=== PATIENT | female | born 1960 | race Caucasian/White ===

== ENCOUNTER 2017-08-05 08:00 | Inpatient (IN) | payer OTHER ==
[~2017-08-05] VITALS: Ht 166.4 cm; Wt 109.1 kg
--- NOTE | 2017-09-16 11:55 | MH ---
cc: Pankaj PEÑA M.D. DATE OF ADMISSION: 09/23/2017 ADMITTING DIAGNOSIS Mechanically loose left total knee arthroplasty, now being admitted for revision of left total knee arthroplasty. HISTORY OF PRESENT ILLNESS This pleasant 56-year-old female is being admitted today for revision of a left total knee arthroplasty that was done over a year ago and has been hurting since. Recent x-rays and bone scan were done. The x-rays reveal probable loosening. PAST MEDICAL HISTORY 1. History of breast cancer and mastectomy. 2. Anemia. 3. Arthritis. 4. Depression. MEDICATIONS Current medications include: 1. Tamoxifen. 2. Ativan. 3. Lexapro. 4. Risperdal. PAST SURGICAL HISTORY Other surgeries include: 1. Three knee surgeries, one replacement on the left. 2. Two C-sections. 3. Hysterectomy. 4. Mastectomy. 5. Thyroidectomy. SOCIAL HISTORY She does not smoke or drink. REVIEW OF SYSTEMS Noncontributory. FAMILY HISTORY Noncontributory. ALLERGIES She has no known allergies. PHYSICAL EXAMINATION GENERAL: We find a 56-year-old female, well-developed, well-nourished, oriented x3, complaining of pain in her left knee and instability of the left knee. VITAL SIGNS: Blood pressure 118/80, pulse 79 and regular, respirations 16, temperature 98.2. Pulse oximetry 98% on room air. HEENT: Eyes PERRLA, EOMI. Ears, nose and mouth clear. NECK: Supple. LUNGS: Clear. HEART: Regular rate. ABDOMEN: Soft. Positive bowel sounds. Nontender. EXTREMITIES: The left knee reveals 2+ varus-valgus instability, good range of motion. Neurovascularly intact to her toes. Antalgic gait. IMPRESSION Impression at this time is mechanically loose left total knee arthroplasty. PLAN The plan is admission for revision left total knee arthroplasty today. The patient was given a prescription for postoperative pain and anticoagulation control in the office. She plans on going home after her surgical stay in the hospital. She understands to use Hibiclens scrub and Bactroban preoperatively. JMD ALYSA Partida/FÉLIX /11:42 AM /11:51 AM
[2017-09-20] MEDS ORDERED: RISP1 PO (09:11)
[2017-09-20] MEDS ORDERED: TAMO20TA6 PO (09:11)
[2017-09-20] MEDS ORDERED: VITA100021 SL (09:11)
[2017-09-20] MEDS ORDERED: LEXA20TA PO (09:11)
[2017-09-20] MEDS ORDERED: MULT-65 PO (09:11)
[2017-09-20] MEDS ORDERED: LORA-392 PO (09:11)
[2017-09-23] MEDS ORDERED: VANCOMYCIN 1000 MG/NS 250 ML (for <70 kg) IV SCH ×2 (06:00)
[2017-09-23] MEDS ORDERED: LACTATED RINGER'S 1000 ML IV PRN (06:00)
[2017-09-23] MEDS ORDERED: INSULIN HUMAN REGULAR 1,000 UNITS/10 ML VIAL SQ PRN (06:00)
[2017-09-23] MEDS ORDERED: METOPROLOL TARTRATE 25 MG TAB PO PRN (06:00)
[2017-09-23] MEDS ORDERED: CHLORHEXIDINE GLUCONATE 4% SOLN 120 ML BTL TOPICAL SCH (06:00)
[2017-09-23] MEDS ORDERED: ceFAZolin 2 GM PREMIX 50 ML IV SCH (06:00)
[2017-09-23] MEDS ORDERED: SODIUM CHLORID 0.9% 500 ML IV PRN (06:00)
[2017-09-23] MEDS ORDERED: CHLORHEXIDINE GLUCONATE 2 % 1 PACK (2 CLOTHS) TOPICAL PRN (06:00)
[2017-09-23] MEDS ORDERED: POVIDONE IODINE 5% (ANTISEPSIS KIT) 4 APPLICATIONS EACH NARE PRN (06:00)
[2017-09-23] MEDS ORDERED: ceFAZolin INJ 1,000 MG VIAL ONE ×2 (06:11→11:04)
[2017-09-23] MEDS ORDERED: TOBRAMYCIN SULFATE 1200 MG VIAL ONE ×2 (06:11→11:17)
[2017-09-23] MEDS ORDERED: ACETAMINOPHEN 1000 MG/100 ML 100 ML IV ONE (06:20)
[2017-09-23] MEDS ORDERED: BUPIVACAINE HCL PF 0.5% 30 ML VIAL ONE (06:20)
[2017-09-23] MEDS ORDERED: FAMOTIDINE 20 MG/2 ML VIAL ONE (06:21)
[2017-09-23] MEDS ORDERED: PROPOFOL 500 MG/50 ML INJ 50 ML ONE ×3 (06:22→06:23)
[2017-09-23 06:54] LABS: AUTOMATED NEUTROPHIL # 2.3 TH/MM3 (1.8-7.7); BASOPHIL % 0.4 % (0.0-2.0); EOSINOPHIL % 0.6 % (0.0-4.0); HEMATOCRIT 35.8 % (35.0-46.0); HEMO FLAGS DIFF FINAL; LYMPH % 28.2 % (9.0-44.0); LYMPHOCYTE # 1.1 TH/MM3 (1.0-4.8); MEAN CELL VOLUME 88.9 FL (80.0-100.0); MEAN CORPUSCULAR HEMOGLOBIN 30.2 PG (27.0-34.0); MONO % 9.3 % (0.0-8.0); NEUT % 61.5 % (16.0-70.0); PLATELET COUNT 165 TH/MM3 (150-450); RED BLOOD COUNT 4.02 MIL/MM3 (4.00-5.30); RED CELL DISTRIBUTION WIDTH 13.2 % (11.6-17.2); WHITE BLOOD COUNT 3.8 TH/MM3 (4.0-11.0)
[2017-09-23] MEDS ORDERED: BUPIVACAINE LIPOSOME PF 1.3% 20 ML VIAL ONE (06:54)
[2017-09-23] MEDS ORDERED: TRANEXAMIC ACID IV SCH ×3 (07:00→11:00)
[2017-09-23] MEDS ORDERED: SODIUM CHLORIDE 0.9% IV SCH ×3 (07:00→11:00)
[2017-09-23] MEDS ORDERED: EXPAREL PERI-ARTICULAR INJECTION (TOTAL VOL. 120 ML) P-ARTICULR SCH ×2 (07:00)
--- NOTE | 2017-09-23 07:23 | HHI.FF ---
Face to Face Verification Diagnosis: (1) Status post revision of total replacement of left knee Physical Therapy Gait training Knee: Total knee, Protocol: Left, Full weight bearing Canvas Knee Splint: When in bed & 2 pillows btw thighs Nursing RN: 3 days/week x 2 weeks Nursing: Dressing changes Dressing Changes: Daily dressing change, 4x4s, Gauze, Paper tape I have seen patient Ailyn Lorenz on 09/23/17. My clinical findings support the need for the requested home health care services because: Limited ability to care for self High risk of falls I certify that my clinical findings support that this patient is homebound because: Unsteady gait/balance Pankaj Polk MD Sep 23, 2017 07:23
[2017-09-23] MEDS ORDERED: WALKER WHEELS/F1 MIS (07:25)
[2017-09-23] MEDS ORDERED: ADJUSTABLE COMM1 MIS (07:25)
[2017-09-23] MEDS ORDERED: CPMMACHINE (07:25)
[2017-09-23] MEDS ORDERED: ACETAMINOPHEN 325 MG TAB PO PRN (07:30)
[2017-09-23] MEDS ORDERED: MORPHINE SULFATE 4 MG/ML INJ IV PUSH PRN (07:30)
[2017-09-23] MEDS ORDERED: SODIUM CHLORIDE 0.9% FLUSH 5 ML FLUSH IVF PRN (07:30)
[2017-09-23] MEDS ORDERED: TEMAZEPAM 15 MG CAP PO PRN (07:30)
[2017-09-23] MEDS ORDERED: diphenhydrAMINE HCL 50 MG/ML VIAL IV PUSH PRN (07:30)
[2017-09-23] MEDS ORDERED: NALOXONE HCL 0.4 MG/ML AMP IV PUSH PRN (07:30)
[2017-09-23] MEDS ORDERED: MULTIVITAMIN TAB PO SCH (09:00)
[2017-09-23] MEDS: SODIUM CHLORIDE 0.9% FLUSH 5 ML FLUSH IVF SCH ×2 (09:00→20:50)
[2017-09-23] MEDS: TAMOXIFEN CITRATE 10 MG TAB PO SCH (09:00)
[2017-09-23] MEDS: LORazepam 0.5 MG TAB PO SCH ×3 (09:00→18:00)
[2017-09-23] MEDS: ESCITALOPRAM OXALATE 20 MG TAB PO SCH (09:00)
[2017-09-23] MEDS: CYANOCOBALAMIN 1,000 MCG TAB PO SCH (09:00)
[2017-09-23] MEDS: risperiDONE 1 MG TAB PO SCH (09:00)
[2017-09-23] MEDS ORDERED: Post-op Orders (for Pharmacy) MISC XX ONE (12:00)
[2017-09-23] MEDS ORDERED: ceFAZolin INJ 1,000 MG VIAL IV ONE (12:01)
[2017-09-23] MEDS ORDERED: DO NOT ADM ANY ANTICOAGULANT DRUGS PRN (13:18)
--- NOTE | 2017-09-23 13:35 | RADRPT ---
EXAM DATE/TIME: 09/23/2017 12:35 [facility] COMPARISON: KNEE LEFT LTD (1 OR 2VWS), December 28, 2015, 14:21. INDICATIONS : Post op, left knee replacement. MEDICAL HISTORY : None. SURGICAL HISTORY : None. ENCOUNTER: Initial ACUITY: 1 day PAIN SCORE: Non-responsive. LOCATION: Left knee FINDINGS: The patient is post left knee revision arthroplasty. There is a long stem femoral and longstem tibial component. Orthopedic hardware appears in excellent position. Alignment is good. CONCLUSION: 1. Good alignment of the patient's revision arthroplasty. Emmanuel Payne MD on September 23, 2017 at 13:32 Board Certified Radiologist. This report was verified electronically.
[2017-09-23] MEDS ORDERED: LACTATED RINGER'S 1000 ML INJ 500 ML IV ONE (13:45)
[2017-09-23] MEDS ORDERED: *morphine SULFATE 8 MG/ML PERIprocedure ONLY ONE ×2 (13:50→14:07)
[2017-09-23] MEDS: LACTATED RINGER'S 1000 ML INJ 1,000 ML IV SCH ×2 (14:03→19:47)
[2017-09-23 14:10] LABS: HEMATOCRIT 31.5 % (35.0-46.0); REVIEW FLAG FINAL
[2017-09-23] MEDS ORDERED: *ONDANSETRON 4 MG VIAL PERIprocedural Use ONLY ONE (14:45)
[2017-09-23 14:55] VITALS: BP 121/69; PULSE 100; RESP 18; TEMP 96.6; O2SAT 95
--- NOTE | 2017-09-23 15:15 | MP ---
cc: Pankaj PEÑA M.D. 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 SURGERY PERFORMED Revision left total knee arthroplasty using the [place] total knee system by [employer]. SURGEON Dr. Peña. SENIOR GRAPHIC DESIGNER URIEL Gomez ANESTHESIA General intubation and adductor canal block. PROCEDURE The patient was brought to the operating room and placed on the operating table in the supine position. After successful induction of general anesthesia the patient's left knee, thigh and leg were prepped and draped in the usual manner. Tourniquet was inflated in the left upper thigh and set for 300 mmHg pressure after exsanguination of the left lower extremity. An anterior incision was then made 9 inches in length, centering over the patella, carried down through subcutaneous tissue through a medial parapatellar approach through the old incision line down to the joint surface. The joint surface was entered and clear serous fluid sent to the lab for STAT Gram stain culture. Gram stain revealing few white cells, no bacteria seen. The incision was carried down to the knee joint. The knee joint was then flexed and the patella reflected laterally. The patella found to have been damaged and this was easily removed for later patella revision as well. The femoral component was firmly well-fixed but the tibial component was extremely loose and once the femoral component was removed using a thin osteotome and the femur was disimpacted, the tibia was removed by hand with no loosening or disimpaction ___ the cement was still intact. No cement was found bonded to the tibial component at all. The knee was flexed and the remains of the tibia cement was removed using osteotome. First the tibia was approached by reaming the canal to a size 12.5 for insertion of a 12 x 130 mm tibial muna attached to a size 4 tibial plate after the tibial surface was smoothed using a saw using the appropriate jig to allow slight posterior tilt. After the tibia was reamed the thin cuts were made. The femur was then approached and cleaned up by first finding the canal and reaming the canal to a size 12.5 for insertion of a size 12 x 130 femoral stem and a size E left femur was used and the anterior and posterior cuts were made. Two 5 mm posterior augments were utilized with the appropriate screws on the actual component as well. The distal cut was cleaned up as well and the chamfer cuts. The trials were inserted and found to track best with the aforementioned sizes and a size 11 insert. All trials were then removed and the wound irrigated copiously with antibiotic solution, the tourniquet being deflated at 111 minutes and left deflated for over 1 hour before it was raised again for cementing and at that point the total tourniquet time was 28 minutes. The actual component was then cemented in place, first the tibia with two batches of antibiotic impregnated cement. After that cement hardened the femur and the patella were cemented into place using two more batches of Fanvibe[employer] antibiotic impregnated cement. After the tourniquet was finally deflated meticulous hemostasis was achieved and 120 ccs of Exparel was used around the knee joint for extra pain control. The size 11 insert was then impacted into place and held steady with the locking screw. The first screw did not fit well and the first tibial insert had to be exchanged for a brand new one again and the second one was easily screwed into place and tightened to prevent it from loosening. Full range of motion of the knee joint was then appreciated with no instability. The wounds were irrigated copiously with antibiotic solution and meticulous hemostasis was achieved. The deep fascia was approximated with running #2 Quill, subcutaneous tissue was approximated with interrupted running 2-0 and 3-0 Monocryl suture, Steri-Strips, sterile dressing and knee immobilizer. No drain was utilized. Estimated blood loss throughout the case was 300 ccs. An extra 2 hours of time was needed because of problems with breakage of screws and extra dissection technique to allow the second insert to be seated properly and CaitlinURIEL Vergara was present during the entire procedure to include patient positioning and the procedure. The medical necessity of the nurse practitioner customer relations assistant was indicated in this case due to the surgical complexity of the case itself. During the surgical case the surgical elastic knitter was working the back table while my surgical services director URIEL was directly assisting me. J. MD ALYSA Ruiz/JAME /2:11 PM /2:42 PM
[2017-09-23] MEDS: ONDANSETRON HCL 4 MG/2 ML VIAL IVP PRN ×2 (16:46→20:46)
--- NOTE | 2017-09-23 19:36 | EKG ---
Date Performed: 09/23/2017 Time Performed: 07:13:38 PTAGE: 56 years EKG: Sinus rhythm LEFT BUNDLE BRANCH BLOCK ABNORMAL ECG Since PREVIOUS TRACING , no significant change noted PREVIOUS TRACIN12/12/2015 09.30 DOCTOR: Jessica Hi Interpretating Date/Time 09/23/2017 19:34:57
[2017-09-23 20:00] VITALS: BP 127/73; PULSE 88; RESP 18; TEMP 97.8; O2SAT 94
--- NOTE | 2017-09-23 20:22 | HHI.PR ---
Immediate Post Op Note Procedure Date: Sep 23, 2017 Pre Op Diagnosis: Mechanically loose left total knee arthroplasty Post Op Diagnosis: Mechanically loose left total knee arthroplasty Surgeon: Omar Polk MD Bending Machine Operator(s): Evelia TREVINO Procedure: Revision Left Total Knee Arthroplasty Findings: Mechanically loose left total knee arthroplasty Specimen(s) removed: Cultures of knee joint Estimated blood loss: 300 cc Anesthesia: General Drains: None IVF Urinary Output (mLs): 0 (no woodruff) Tourniquet time (min at mmHg) 120 minutes at 300 mmHg Patient to: PACU Patient Condition: Good Implant/Devices: SEE IMPLANT LOG (if applicable) Date/Time of Procedure: SEE SURGICAL CARE RECORD Evelia Vigil Sep 23, 2017 20:22
--- NOTE | 2017-09-23 20:24 | PD.CONS ---
HPI Service [facility] Consult Requested By Primary Care Physician No Primary Care Physician Diagnoses: History of Present Illness 56-year-old female with a history of depression, anxiety, osteoarthritis who presents for revision of left total knee arthroplasty, which had appeared to loosen on imaging. She is currently postop in bed. She reports some nausea without vomiting after surgery which improved with antiemetics. Denies any chest pain or shortness of breath. Denies any lightheadedness or dizziness. She does report chronic constipation, however denies any severe constipation at this time. She says she felt fine prior to coming in the hospital apart from knee pain. She does report snoring at night, however has never had evaluation for this. She reports chronic pain all over, as well as waking up more tired than she was when she went to sleep. She also reports chronic intermittent numbness and tingling in her fingers bilaterally, sometimes exacerbated by having her elbow on the bed. Denies any issues with this at this current time. Review of Systems performed and negative except for HPI and past medical history. Past Family Social History Allergies: Coded Allergies: adhesive (Unverified Allergy, Severe, Irritation, 09/23/17) plastic tape causes blisters, can use paper taper Past Medical History Depression B12 deficiency Anxiety History of breast cancer status post left mastectomy years ago. Reports cancer free. Chronic constipation. Past Surgical History 3 knee surgeries, with one replacement on the left 2 Hysterectomy Left-sided mastectomy Partial thyroidectomy. Says she does not require Synthroid. Pyloric stenosis surgery as a child. Reported Medications Lexapro 20 mg by mouth daily Risperdal 1 mg by mouth daily Ativan 0.5 mg by mouth 3 times a day Tamoxifen 20 mg by mouth daily Vitamin B12 1000 g daily Multivitamin daily. Family History Father with Parkinson's. Mother with dementia. Social History Nonsmoker. Nondrinker. Denies illicit drugs. Physical Exam Vital Signs Vital Signs Date Time Temp Pulse Resp B/P (MAP) Pulse Ox O2 Delivery O2 Flow Rate FiO2 09/23/17 18:57 Room Air 09/23/17 14:55 96.6 100 18 121/69 (86) 95 09/23/17 14:45 97.7 95 24 118/64 (82) 97 Nasal Cannula 2 09/23/17 14:30 98 12 118/64 (82) 97 Nasal Cannula 2 09/23/17 14:15 90 12 118/65 (82) 97 Nasal Cannula 2 09/23/17 14:00 94 12 113/64 (80) 98 Nasal Cannula 2 09/23/17 13:45 94 14 113/67 (82) 98 Nasal Cannula 2 09/23/17 13:40 84 12 93/57 (69) 96 09/23/17 13:35 85 12 84/52 (63) 97 09/23/17 13:30 82 13 77/47 (57) 97 Nasal Cannula 2 09/23/17 13:25 Nasal Cannula 2 09/23/17 13:19 98.1 117 12 106/64 (78) 100 Simple Mask 6 Physical Exam GENERAL: This is a well-nourished, well-developed patient, in no apparent distress.alert and oriented 3. SKIN: No rashes, ecchymoses or lesions. Cool and dry. HEAD: Atraumatic. Normocephalic. No temporal or scalp tenderness. EYES: Pupils equal round and reactive. Extraocular motions intact. No scleral icterus. No injection or drainage. ENT: Nose without bleeding, purulent drainage or septal hematoma. Throat without erythema, tonsillar hypertrophy or exudate. Uvula midline. Airway patent. NECK: Trachea midline. No JVD or lymphadenopathy. Supple, nontender, no meningeal signs. CARDIOVASCULAR: Regular rate and rhythm without murmurs, gallops, or rubs. RESPIRATORY: Clear to auscultation. Breath sounds equal bilaterally. No wheezes , rales, or rhonchi. GASTROINTESTINAL: Abdomen soft, non-tender, nondistended. No hepato-splenomegaly , or palpable masses. No guarding. MUSCULOSKELETAL: Extremities without clubbing, cyanosis, or edema. No joint tenderness, effusion, or edema noted. No calf tenderness. Negative Homans sign bilaterally. NEUROLOGICAL: Awake and alert. Cranial nerves II through XII intact. strength in bilateral upper extremities 5 out of 5. Peripheral perfusion in bilateral lower extremities intact. Postoperative knee not examined. Laboratory Laboratory Tests Test 09/23/17 06:20 09/23/17 13:58 09/23/17 18:56 White Blood Count 3.8 Red Blood Count 4.02 Hemoglobin 12.2 10.6 Hematocrit 35.8 31.5 Mean Corpuscular Volume 88.9 Mean Corpuscular Hemoglobin 30.2 Mean Corpuscular Hemoglobin Concent 34.0 Red Cell Distribution Width 13.2 Platelet Count 165 Mean Platelet Volume 8.2 Neutrophils (%) (Auto) 61.5 Lymphocytes (%) (Auto) 28.2 Monocytes (%) (Auto) 9.3 Eosinophils (%) (Auto) 0.6 Basophils (%) (Auto) 0.4 Neutrophils # (Auto) 2.3 Lymphocytes # (Auto) 1.1 Monocytes # (Auto) 0.4 Eosinophils # (Auto) 0.0 Basophils # (Auto) 0.0 CBC Comment DIFF FINAL Differential Comment Date/Time Source Procedure Growth Status 09/23/17 08:10 Wound Knee Gram Stain - Final Resulted 09/23/17 08:10 Wound Knee Wound Culture Pending Resulted Result Diagram: 09/23/17 1358 Imaging Last Impressions Knee X-Ray 09/23/17 0717 Signed Impressions: Service Date/Time: Saturday, September 23, 2017 12:35 - CONCLUSION: 1. Good alignment of the patient's revision arthroplasty. Emmanuel Payne MD Assessment and Plan Assessment and Plan //Postoperative day 0 left knee replacement --Postoperative management as per surgical service. -Pain management as per surgical service -Wait return of bowel function. BMP pending. //Postoperative nausea. Antiemetics as needed. //Chronic constipation. Expect to be worse with narcotics. We'll order laxatives. //Depression. Chronic. Patient denies any SI. Continue home medications //Leukopenia. 3.8. Uncertain etiology. Could be lab error. No signs of infection. Continue to monitor. //Postoperative anemia. Hemoglobin 10.6. No signs of bleeding. We'll continue to monitor. //Suspected obstructive sleep apnea. Recommend patient get outpatient evaluation. We'll monitor closely in the hospital. Discussed with nursing. //History of breast cancer status post left mastectomy years ago. Reports cancer free. Continue tamoxifen. //Prophylaxis. As per surgical service. Discussed Condition With patient, nurse. Dipak Krishnan MD Sep 23, 2017 20:24
[2017-09-23 20:38] LABS: BICARBONATE 21.4 MEQ/L (21.0-32.0)
[2017-09-23] MEDS ORDERED: DOCUSATE SODIUM 50 MG/SENNA 8.6 MG TAB PO ONE (20:45)
[2017-09-23] MEDS ORDERED: MAGNESIUM HYDROXIDE SUSP 30 ML CUP PO ONE (20:45)
[2017-09-23] MEDS: ACETAMINOPHEN/HYDROcodone 325 MG/7.5 MG TAB PO PRN (20:46)
[2017-09-23] MEDS ORDERED: APIXABAN 2.5 MG TABLET PO SCH (21:00)
[2017-09-24] VITALS: BP 129/78; PULSE 90; RESP 16; TEMP 97.8; O2SAT 95
[2017-09-24] MEDS: ACETAMINOPHEN/HYDROcodone 325 MG/7.5 MG TAB PO PRN ×5 (00:59→21:44)
[2017-09-24 04:00] VITALS: BP 133/78; PULSE 95; RESP 17; TEMP 98.8; O2SAT 95
[2017-09-24] MEDS: ONDANSETRON HCL 4 MG/2 ML VIAL IVP PRN (07:26)
[2017-09-24 08:00] VITALS: BP 108/67; PULSE 91; RESP 18; TEMP 99.5; O2SAT 94
[2017-09-24] MEDS: LACTATED RINGER'S 1000 ML INJ 1,000 ML IV SCH ×2 (08:17→20:47)
[2017-09-24] MEDS: CYANOCOBALAMIN 1,000 MCG TAB PO SCH (08:34)
[2017-09-24] MEDS: LORazepam 0.5 MG TAB PO SCH ×3 (08:34→16:18)
[2017-09-24] MEDS: risperiDONE 1 MG TAB PO SCH (08:34)
[2017-09-24] MEDS: ESCITALOPRAM OXALATE 20 MG TAB PO SCH (08:34)
[2017-09-24] MEDS: SODIUM CHLORIDE 0.9% FLUSH 5 ML FLUSH IVF SCH ×2 (08:36→21:46)
[2017-09-24] MEDS: TAMOXIFEN CITRATE 10 MG TAB PO SCH (08:39)
[2017-09-24] MEDS: CYCLOBENZAPRINE HCL 10 MG TAB PO PRN ×2 (11:33→21:45)
--- NOTE | 2017-09-24 11:49 | PD.ORT.PN ---
Subjective Subjective Remarks Patient is complaining of pain behind her left knee with spasms. Objective Vitals Vital Signs Date Time Temp Pulse Resp B/P (MAP) Pulse Ox O2 Delivery O2 Flow Rate FiO2 09/24/17 08:00 99.5 91 18 108/67 (81) 94 09/24/17 04:00 98.8 95 17 133/78 (96) 95 09/24/17 00:00 97.8 90 16 129/78 (95) 95 09/23/17 20:00 97.8 88 18 127/73 (91) 94 09/23/17 18:57 Room Air 09/23/17 14:55 96.6 100 18 121/69 (86) 95 09/23/17 14:45 97.7 95 24 118/64 (82) 97 Nasal Cannula 2 09/23/17 14:30 98 12 118/64 (82) 97 Nasal Cannula 2 09/23/17 14:15 90 12 118/65 (82) 97 Nasal Cannula 2 09/23/17 14:00 94 12 113/64 (80) 98 Nasal Cannula 2 09/23/17 13:45 94 14 113/67 (82) 98 Nasal Cannula 2 09/23/17 13:40 84 12 93/57 (69) 96 09/23/17 13:35 85 12 84/52 (63) 97 09/23/17 13:30 82 13 77/47 (57) 97 Nasal Cannula 2 09/23/17 13:25 Nasal Cannula 2 09/23/17 13:19 98.1 117 12 106/64 (78) 100 Simple Mask 6 I/O 09/23/17 09/23/17 09/23/17 09/24/17 09/24/17 09/24/17 07:00 15:00 23:00 07:00 15:00 23:00 Intake Total 2377 ml 100 ml 900 ml Output Total 5500 ml 50 ml Balance -3123 ml 50 ml 900 ml Intake Oral 30 ml IV Total 547 ml 100 ml 900 ml Other 1800 ml Output Urine Total 1200 ml 50 ml Estimated Blood Loss 300 ml Other 4000 ml Result Diagram: 09/23/17 7038 09/23/17 7623 Objective Remarks Dressing is dry and intact. She is neurovascularly intact to her toes and has no calf tenderness. Assessment & Plan Ortho Post Op Day #: 1 Problem List: Assessment and Plan Flexeril for muscle spasms. Continue with physical therapy and out of bed as tolerated. Plan on discharge to home over the next day or 2. Pankaj Polk MD Sep 24, 2017 11:49
[2017-09-24 12:00] VITALS: BP 110/60; PULSE 84; RESP 18; TEMP 98.9; O2SAT 94
[2017-09-24 12:13] LABS: AUTOMATED NEUTROPHIL # 4.3 TH/MM3 (1.8-7.7); BASOPHIL % 0.2 % (0.0-2.0); HEMATOCRIT 26.7 % (35.0-46.0); HEMO FLAGS DIFF FINAL; LYMPH % 14.5 % (9.0-44.0); LYMPHOCYTE # 0.8 TH/MM3 (1.0-4.8); MEAN CELL VOLUME 89.5 FL (80.0-100.0); MEAN CORPUSCULAR HEMOGLOBIN 29.7 PG (27.0-34.0); MEAN CORPUSCULAR HGB CONC 33.1 % (32.0-36.0); MONO % 8.9 % (0.0-8.0); NEUT % 76.4 % (16.0-70.0); PLATELET COUNT 132 TH/MM3 (150-450); RED BLOOD COUNT 2.98 MIL/MM3 (4.00-5.30); RED CELL DISTRIBUTION WIDTH 13.4 % (11.6-17.2); WHITE BLOOD COUNT 5.6 TH/MM3 (4.0-11.0)
[2017-09-24] MEDS: APIXABAN 2.5 MG TABLET PO SCH ×2 (12:24→21:46)
[2017-09-24 12:28] LABS: BICARBONATE 28.9 MEQ/L (21.0-32.0); MAGNESIUM 1.8 MG/DL (1.5-2.5); POTASSIUM 3.9 MEQ/L (3.5-5.1)
--- NOTE | 2017-09-24 13:11 | HHI.PR ---
Subjective Remarks Patient seen and examined Complains of inadequate left knee pain control Positive nausea without any emesis Currently afebrile Objective Vitals Vital Signs Date Time Temp Pulse Resp B/P (MAP) Pulse Ox O2 Delivery O2 Flow Rate FiO2 09/24/17 12:00 98.9 84 18 110/60 (77) 94 09/24/17 08:00 99.5 91 18 108/67 (81) 94 09/24/17 04:00 98.8 95 17 133/78 (96) 95 09/24/17 00:00 97.8 90 16 129/78 (95) 95 09/23/17 20:00 97.8 88 18 127/73 (91) 94 09/23/17 18:57 Room Air 09/23/17 14:55 96.6 100 18 121/69 (86) 95 09/23/17 14:45 97.7 95 24 118/64 (82) 97 Nasal Cannula 2 09/23/17 14:30 98 12 118/64 (82) 97 Nasal Cannula 2 09/23/17 14:15 90 12 118/65 (82) 97 Nasal Cannula 2 09/23/17 14:00 94 12 113/64 (80) 98 Nasal Cannula 2 09/23/17 13:45 94 14 113/67 (82) 98 Nasal Cannula 2 09/23/17 13:40 84 12 93/57 (69) 96 09/23/17 13:35 85 12 84/52 (63) 97 09/23/17 13:30 82 13 77/47 (57) 97 Nasal Cannula 2 09/23/17 13:25 Nasal Cannula 2 09/23/17 13:19 98.1 117 12 106/64 (78) 100 Simple Mask 6 I/O 09/23/17 09/23/17 09/23/17 09/24/17 09/24/17 09/24/17 07:00 15:00 23:00 07:00 15:00 23:00 Intake Total 2377 ml 100 ml 900 ml Output Total 5500 ml 50 ml Balance -3123 ml 50 ml 900 ml Intake Oral 30 ml IV Total 547 ml 100 ml 900 ml Other 1800 ml Output Urine Total 1200 ml 50 ml Estimated Blood Loss 300 ml Other 4000 ml Result Diagram: 09/24/17 1140 09/24/17 1140 Imaging Last Impressions Knee X-Ray 09/23/17 0717 Signed Impressions: Service Date/Time: Saturday, September 23, 2017 12:35 - CONCLUSION: 1. Good alignment of the patient's revision arthroplasty. Emmanuel Payne MD Objective Remarks GENERAL: NAD SKIN: Warm and dry. HEAD: Normocephalic. EYES: No scleral icterus. No injection or drainage. NECK: Supple, trachea midline. No JVD or lymphadenopathy. CARDIOVASCULAR: Regular rate and rhythm without murmurs, gallops, or rubs. RESPIRATORY: Breath sounds equal bilaterally. No accessory muscle use. GASTROINTESTINAL: Abdomen soft, non-tender, nondistended. MUSCULOSKELETAL: No cyanosis, or edema. Left knee repair-neurovascularly intact BACK: Nontender without obvious deformity. No CVA tenderness. A/P Assessment and Plan 56-year-old female with //Postoperative day 1 left knee replacement Management per orthopedic surgery Continue currents postop care including IV antibiotics, parenteral pain management PT consult to treat and eval //Postoperative nausea. Antiemetics as needed. //Chronic constipation. Continue with stool softener //Depression. Chronic. Continue home medications //Leukopenia. 3.8. Uncertain etiology. Could be lab error. No signs of infection. Continue to monitor. //Postoperative anemia. Transfuse for hemoglobin less than 8 //Suspected obstructive sleep apnea. Recommend patient get outpatient evaluation. //History of breast cancer status post left mastectomy years ago. Reports cancer free. Continue tamoxifen. //Hypocalcemia Tums 500 mg twice a day //Prophylaxis. Harrison Griffiths MD Sep 24, 2017 13:11
[2017-09-24 16:00] VITALS: BP 119/56; PULSE 87; RESP 18; TEMP 99.7; O2SAT 97
[2017-09-24 20:00] VITALS: BP 127/71; PULSE 96; RESP 20; TEMP 97.8; O2SAT 98
[2017-09-24] MEDS: DOCUSATE SODIUM 100 MG CAP PO SCH (21:45)
[2017-09-24] MEDS: MULTIVITAMINS/MINERALS THERAPEUTIC TAB PO SCH (21:45)
[2017-09-24] MEDS: CALCIUM CARBONATE 1.25 GM (CA 500 MG) TAB PO SCH (21:45)
[2017-09-25] VITALS (8 sets, daily range): BP systolic 109–147; BP diastolic 56–79; PULSE 88–104; RESP 17–20; TEMP 97.1–99.9; O2SAT 92–100
[2017-09-25] MEDS: CYCLOBENZAPRINE HCL 10 MG TAB PO PRN ×3 (04:22→23:36)
[2017-09-25] MEDS: ACETAMINOPHEN/HYDROcodone 325 MG/7.5 MG TAB PO PRN ×4 (04:25→23:36)
--- NOTE | 2017-09-25 07:45 | PD.ORT.PN ---
Subjective Subjective Remarks Patient is complaining of less pain behind her left knee with spasms. Objective Vitals Vital Signs Date Time Temp Pulse Resp B/P (MAP) Pulse Ox O2 Delivery O2 Flow Rate FiO2 09/25/17 04:25 98.3 09/25/17 04:00 93 20 147/79 (101) 100 09/25/17 02:27 Room Air 09/25/17 00:00 97.6 98 20 133/63 (86) 97 09/24/17 20:00 97.8 96 20 127/71 (89) 98 09/24/17 16:00 99.7 87 18 119/56 (77) 97 09/24/17 12:00 98.9 84 18 110/60 (77) 94 09/24/17 08:00 99.5 91 18 108/67 (81) 94 I/O 09/24/17 09/24/17 09/24/17 09/25/17 09/25/17 09/25/17 07:00 15:00 23:00 07:00 15:00 23:00 Intake Total 900 ml 600 ml 500 ml 220 ml Output Total 380 ml Balance 900 ml 600 ml 500 ml -160 ml Intake Oral 600 ml 500 ml 220 ml IV Total 900 ml Output Urine Total 380 ml # Voids 3 # Bowel Movements 0 0 Result Diagram: 09/24/17 1140 09/24/17 1140 Objective Remarks Dressing is dry and intact. She is neurovascularly intact to her toes and has no calf tenderness. Assessment & Plan Ortho Post Op Day #: 2 Problem List: Assessment and Plan Flexeril for muscle spasms. Continue with physical therapy and out of bed as tolerated. Plan on discharge to home tomorrow if ok with medical. Pankaj Polk MD Sep 25, 2017 07:45
[2017-09-25] MEDS: SODIUM CHLORIDE 0.9% FLUSH 5 ML FLUSH IVF SCH ×2 (09:00→20:35)
[2017-09-25] MEDS: MULTIVITAMINS/MINERALS THERAPEUTIC TAB PO SCH ×2 (09:00→20:36)
[2017-09-25] MEDS: LACTATED RINGER'S 1000 ML INJ 1,000 ML IV SCH (09:17)
[2017-09-25 09:49] LABS: HEMATOCRIT 26.8 % (35.0-46.0); REVIEW FLAG FINAL
[2017-09-25] MEDS ORDERED: BACITRACIN OINT 0.9 GM PKT TOP PRN (10:15)
[2017-09-25] MEDS: CYANOCOBALAMIN 1,000 MCG TAB PO SCH (10:19)
[2017-09-25] MEDS: ESCITALOPRAM OXALATE 20 MG TAB PO SCH (10:20)
[2017-09-25] MEDS: LORazepam 0.5 MG TAB PO SCH ×3 (10:20→17:52)
[2017-09-25] MEDS: TAMOXIFEN CITRATE 10 MG TAB PO SCH (10:20)
[2017-09-25] MEDS: CALCIUM CARBONATE 1.25 GM (CA 500 MG) TAB PO SCH ×2 (10:21→20:35)
[2017-09-25] MEDS: DOCUSATE SODIUM 100 MG CAP PO SCH ×2 (10:21→20:35)
[2017-09-25] MEDS: risperiDONE 1 MG TAB PO SCH (10:21)
[2017-09-25] MEDS: APIXABAN 2.5 MG TABLET PO SCH ×2 (10:22→20:34)
--- NOTE | 2017-09-25 15:49 | HHI.PR ---
Subjective Remarks Follow-up anemia. Patient states that she is having significant spasms around her knee. Denies chest pain, dyspnea, nausea, vomiting. Objective Vitals Vital Signs Date Time Temp Pulse Resp B/P (MAP) Pulse Ox O2 Delivery O2 Flow Rate FiO2 09/25/17 12:00 97.6 88 18 110/69 (83) 93 09/25/17 08:00 98.3 104 17 133/71 (91) 94 09/25/17 04:25 98.3 09/25/17 04:00 93 20 147/79 (101) 100 09/25/17 02:27 Room Air 09/25/17 00:00 97.6 98 20 133/63 (86) 97 09/24/17 20:00 97.8 96 20 127/71 (89) 98 09/24/17 16:00 99.7 87 18 119/56 (77) 97 I/O 09/24/17 09/24/17 09/24/17 09/25/17 09/25/17 09/25/17 07:00 15:00 23:00 07:00 15:00 23:00 Intake Total 900 ml 600 ml 500 ml 220 ml Output Total 380 ml Balance 900 ml 600 ml 500 ml -160 ml Intake Oral 600 ml 500 ml 220 ml IV Total 900 ml Output Urine Total 380 ml # Voids 3 # Bowel Movements 0 0 Result Diagram: 09/25/17 0847 09/24/17 1140 Imaging Last Impressions Knee X-Ray 09/23/17716 Signed Impressions: Service Date/Time: Saturday, September 23, 2017 12:35 - CONCLUSION: 1. Good alignment of the patient's revision arthroplasty. Emmanuel Payne MD Objective Remarks General: No acute distress. Appears uncomfortable. Heart: Regular rate and rhythm. No murmur. Lungs: Clear to auscultation bilaterally. No wheezes, rales, or rhonchi. Breathing is nonlabored. Abdomen: Soft, nontender, nondistended. Extremities: No lower extremity edema. Psych: Alert and oriented. Procedures 09/23/17 left total knee arthroplasty. Urinary Catheter: No Vascular Central Line Catheter: No A/P Assessment and Plan 1. Osteoarthritis, left knee: Status post left total knee arthroplasty. Management per orthopedic surgery. Continue physical therapy, bowel regimen. 2. Postoperative nausea: Improved. Antiemetics as needed. 3. Chronic constipation: Continue bowel regimen. 4. Depression: Chronic. Continue home medications. 5. Leukopenia: Resolved. 6. Postoperative anemia: H&H low, but stable overnight. Recheck labs in the morning. 7. Suspected obstructive sleep apnea: Patient advised to have sleep study as an outpatient. 8. History of breast cancer: Status post left mastectomy many years ago. Patient states she is cancer free. Continue tamoxifen. 9. Hypocalcemia: Continue Tums. 10. DVT prophylaxis: Eliquis. Discharge Planning Per orthopedic surgery. Surjit La MD Sep 25, 2017 15:49
[2017-09-26 05:44] VITALS: BP 123/70; PULSE 100; RESP 18; TEMP 99.1; O2SAT 92
[2017-09-26 08:00] VITALS: BP 132/68; PULSE 93; RESP 18; TEMP 99.8; O2SAT 96
[2017-09-26 08:46] LABS: AUTOMATED NEUTROPHIL # 3.8 TH/MM3 (1.8-7.7); BASOPHIL % 0.1 % (0.0-2.0); EOSINOPHIL % 0.3 % (0.0-4.0); HEMATOCRIT 23.3 % (35.0-46.0); HEMO FLAGS DIFF FINAL; LYMPH % 14.6 % (9.0-44.0); LYMPHOCYTE # 0.7 TH/MM3 (1.0-4.8); MEAN CELL VOLUME 88.7 FL (80.0-100.0); MEAN CORPUSCULAR HEMOGLOBIN 30.6 PG (27.0-34.0); MEAN CORPUSCULAR HGB CONC 34.5 % (32.0-36.0); MONO % 8.6 % (0.0-8.0); NEUT % 76.4 % (16.0-70.0); PLATELET COUNT 118 TH/MM3 (150-450); RED BLOOD COUNT 2.63 MIL/MM3 (4.00-5.30); RED CELL DISTRIBUTION WIDTH 13.4 % (11.6-17.2); WHITE BLOOD COUNT 4.9 TH/MM3 (4.0-11.0)
[2017-09-26] MEDS: LORazepam 0.5 MG TAB PO SCH ×2 (09:00→14:37)
[2017-09-26] MEDS: MULTIVITAMINS/MINERALS THERAPEUTIC TAB PO SCH (09:00)
[2017-09-26] MEDS: SODIUM CHLORIDE 0.9% FLUSH 5 ML FLUSH IVF SCH (09:00)
[2017-09-26 09:14] LABS: BICARBONATE 29.2 MEQ/L (21.0-32.0); POTASSIUM 3.6 MEQ/L (3.5-5.1)
[2017-09-26] MEDS: DOCUSATE SODIUM 100 MG CAP PO SCH (10:46)
[2017-09-26] MEDS: ACETAMINOPHEN/HYDROcodone 325 MG/7.5 MG TAB PO PRN ×2 (10:46→15:07)
[2017-09-26] MEDS: CYANOCOBALAMIN 1,000 MCG TAB PO SCH (10:46)
[2017-09-26] MEDS: CYCLOBENZAPRINE HCL 10 MG TAB PO PRN (10:47)
--- NOTE | 2017-09-26 10:47 | PD.ORT.PN ---
Subjective Subjective Remarks Patient is complaining of less pain behind her left knee with spasms. Objective Vitals Vital Signs Date Time Temp Pulse Resp B/P (MAP) Pulse Ox O2 Delivery O2 Flow Rate FiO2 09/26/17 08:00 99.8 93 18 132/68 (89) 96 09/26/17 05:44 99.1 100 18 123/70 (87) 92 09/25/17 23:26 99.9 92 18 126/79 (95) 92 09/25/17 20:11 97.1 104 17 109/56 (73) 92 09/25/17 16:00 98.8 88 18 127/62 (83) 93 09/25/17 12:00 97.6 88 18 110/69 (83) 93 I/O 09/25/17 09/25/17 09/25/17 09/26/17 09/26/17 09/26/17 07:00 15:00 23:00 07:00 15:00 23:00 Intake Total 220 ml 1200 ml 360 ml Output Total 380 ml Balance -160 ml 1200 ml 360 ml Intake Oral 220 ml 1200 ml 360 ml Output Urine Total 380 ml # Voids 10 2 # Bowel Movements 0 0 0 Result Diagram: 09/26/17 0800 09/26/17 0800 Objective Remarks Dressing is dry and intact. She is neurovascularly intact to her toes and has no calf tenderness. Assessment & Plan Ortho Post Op Day #: 3 Problem List: Assessment and Plan Flexeril for muscle spasms. Continue with physical therapy and out of bed as tolerated. Plan on discharge to home today if ok with medical. Pankaj Polk MD Sep 26, 2017 10:47
[2017-09-26] MEDS: ESCITALOPRAM OXALATE 20 MG TAB PO SCH (10:48)
[2017-09-26] MEDS: risperiDONE 1 MG TAB PO SCH (10:48)
--- NOTE | 2017-09-26 10:51 | HHI.DS ---
Discharge Summary Admission Date Sep 23, 2017 at 05:27 Discharge Date: Sep 26, 2017 Admitting Diagnosis Failed left total knee arthroplasty Diagnosis: (1) Status post revision of total replacement of left knee Diagnosis: Principal ICD Codes: Z96.652 - Presence of left artificial knee joint Brief History This is a 56 year old female patient CBC/BMP: 09/26/17 0800 09/26/17 0800 Significant Findings Laboratory Tests Test 09/23/17 13:58 09/23/17 18:56 09/24/17 11:40 09/25/17 08:47 Hemoglobin 10.6 GM/DL (11.6-15.3) 8.8 GM/DL (11.6-15.3) 8.9 GM/DL (11.6-15.3) Hematocrit 31.5 % (35.0-46.0) 26.7 % (35.0-46.0) 26.8 % (35.0-46.0) Random Glucose 149 MG/DL (74-106) 132 MG/DL (74-106) Calcium Level 7.9 MG/DL (8.5-10.1) 7.4 MG/DL (8.5-10.1) Estimat Glomerular Filtration Rate 67 ML/MIN (>89) 65 ML/MIN (>89) Red Blood Count 2.98 MIL/MM3 (4.00-5.30) Platelet Count 132 TH/MM3 (150-450) Neutrophils (%) (Auto) 76.4 % (16.0-70.0) Monocytes (%) (Auto) 8.9 % (0.0-8.0) Lymphocytes # (Auto) 0.8 TH/MM3 (1.0-4.8) Albumin 2.8 GM/DL (3.4-5.0) Sodium Level 135 MEQ/L (136-145) Test 09/26/17 08:00 Red Blood Count 2.63 MIL/MM3 (4.00-5.30) Hemoglobin 8.0 GM/DL (11.6-15.3) Hematocrit 23.3 % (35.0-46.0) Platelet Count 118 TH/MM3 (150-450) Neutrophils (%) (Auto) 76.4 % (16.0-70.0) Monocytes (%) (Auto) 8.6 % (0.0-8.0) Lymphocytes # (Auto) 0.7 TH/MM3 (1.0-4.8) Random Glucose 117 MG/DL (74-106) Calcium Level 8.2 MG/DL (8.5-10.1) PE at Discharge Dressing is dry and intact. She is neurovascularly intact to her toes and has no calf tenderness. Hospital Course Patient underwent a revision of her failed left total knee arthroplasty on day of admission. She received a course of prophylactic IV antibiotics and within 23 hours started on anticoagulation therapy. She remained afebrile with temperatures below 100 but did complain of some pain in the back of her knee which was treated as muscle spasms with Flexeril. She was then maintained on by mouth pain meds and tolerated food and fluid well. She began out of bed with physical therapy and daily wound care. She was also managed by the medical service for low calcium and hemoglobin levels. She continued to improve was discharged to home with home healthcare and physical therapy on the third postoperative day in good condition with instructions for follow-up care in the office. Pt Condition on Discharge: Good Discharge Disposition: Disch w/ Home Health Serv Discharge Instructions Diet Instructions: As Tolerated, No Restrictions Activities You Can Perform: Full Weight Bearing, Shower Only-No Bath Activities to Avoid: Bathing, Driving Pankaj Polk MD Sep 26, 2017 10:51
[2017-09-26] MEDS: TAMOXIFEN CITRATE 10 MG TAB PO SCH (10:55)
[2017-09-26] MEDS: APIXABAN 2.5 MG TABLET PO SCH (10:55)
[2017-09-26] MEDS: CALCIUM CARBONATE 1.25 GM (CA 500 MG) TAB PO SCH (10:55)
[2017-09-26 12:00] VITALS: BP 115/60; PULSE 91; RESP 18; TEMP 98.8; O2SAT 96
[2017-09-26 14:21] LABS: HEMATOCRIT 24.6 % (35.0-46.0); REVIEW FLAG FINAL
[2017-09-26] MEDS ORDERED: CYCL10TA PO (14:31)
--- NOTE | 2017-09-26 14:34 | HHI.PR ---
Subjective Remarks Follow-up anemia. The patient denies lightheadedness, dizziness, shortness of breath. She denies any bleeding. She wants to go home today. She states that she feels much better overall. She has been ambulating without lightheadedness/ dizziness. Objective Vitals Vital Signs Date Time Temp Pulse Resp B/P (MAP) Pulse Ox O2 Delivery O2 Flow Rate FiO2 09/26/17 08:00 99.8 93 18 132/68 (89) 96 09/26/17 05:44 99.1 100 18 123/70 (87) 92 09/25/17 23:26 99.9 92 18 126/79 (95) 92 09/25/17 20:11 97.1 104 17 109/56 (73) 92 09/25/17 16:00 98.8 88 18 127/62 (83) 93 I/O 09/25/17 09/25/17 09/25/17 09/26/17 09/26/17 09/26/17 07:00 15:00 23:00 07:00 15:00 23:00 Intake Total 220 ml 1200 ml 360 ml Output Total 380 ml Balance -160 ml 1200 ml 360 ml Intake Oral 220 ml 1200 ml 360 ml Output Urine Total 380 ml # Voids 10 2 # Bowel Movements 0 0 0 Result Diagram: 09/26/17 1332 09/26/17 0800 Imaging Last Impressions Knee X-Ray 09/23/17716 Signed Impressions: Service Date/Time: Saturday, September 23, 2017 12:35 - CONCLUSION: 1. Good alignment of the patient's revision arthroplasty. Emmanuel Payne MD Objective Remarks General: No acute distress. Heart: Regular rate and rhythm. No murmur. Lungs: Clear to auscultation bilaterally. No wheezes, rales, or rhonchi. Breathing is nonlabored. Abdomen: Soft, nontender, nondistended. Extremities: No lower extremity edema. Psych: Alert and oriented. Procedures 09/23/17 left total knee arthroplasty. Urinary Catheter: No Vascular Central Line Catheter: No A/P Assessment and Plan 1. Osteoarthritis, left knee: Status post left total knee arthroplasty. Management per orthopedic surgery. Continue physical therapy, bowel regimen. 2. Postoperative nausea: Improved. Antiemetics as needed. 3. Chronic constipation: Continue bowel regimen. 4. Depression: Chronic. Continue home medications. 5. Leukopenia: Resolved. 6. Postoperative anemia: H&H decreased overnight, but remained stable on recheck. No apparent active bleeding. Patient is asymptomatic. 7. Suspected obstructive sleep apnea: Patient advised to have sleep study as an outpatient. 8. History of breast cancer: Status post left mastectomy many years ago. Patient states she is cancer free. Continue tamoxifen. 9. Hypocalcemia: Continue Tums. 10. DVT prophylaxis: Eliquis. Discharge Planning Discharge home today per orthopedic surgery. Surjit La MD Sep 26, 2017 14:34
[2017-09-26] MEDS ORDERED: MAGNESIUM HYDROXIDE SUSP 30 ML CUP PO PRN (14:45)
[2017-09-26] MEDS ORDERED: BISACODYL 10 MG SUPP RECTAL PRN (14:45)
[2017-09-26] MEDS ORDERED: SENNOSIDES 8.6 MG TAB PO PRN (14:45)
[2017-09-26] MEDS ORDERED: LACTULOSE SYRUP 20 GM/30 ML CUP PO PRN (14:45)
== END 2017-09-26 15:40 | disposition home health service (06) | DRG 470 ==
LOC: HSDI 09-23 05:27 → N06A 09-23 14:57
PROVIDERS: ADMIT Surgery; ATTEND Surgery
PROC: 3E0T3BZ Introduction of Anesthetic Agent into Peripheral Nerves and Plexi, Percutaneous Approach (ICD-10-PCS; 2017-09-23)
PROC: 0SRD0J9 Replacement of Left Knee Joint with Synthetic Substitute, Cemented, Open Approach (ICD-10-PCS; principal; 2017-09-23 07:00)
DX: T84.033A Mechanical loosening of internal left knee prosthetic joint, initial encounter (principal); E83.51 Hypocalcemia; D64.9 Anemia, unspecified; G89.29 Other chronic pain; K59.09 Other constipation; M17.12 Unilateral primary osteoarthritis, left knee; Y79.2 Prosthetic and other implants, materials and accessory orthopedic devices associated with adverse incidents; F32.9 Major depressive disorder, single episode, unspecified; Z85.3 Personal history of malignant neoplasm of breast; Z90.12 Acquired absence of left breast and nipple
CPT/HCPCS: 73560; 80048; 80069; 83735; 85014; 85018; 85025; 86850; 86900; 86901; 87070; 87205; 93005; C9290; J0131; J0690; J2270; J2405; J3260; J3370; J7050; J7120; L1830

== ENCOUNTER 2018-04-08 12:43 | Day surgery (SDC) | payer OTHER ==
[~2018-04-08 12:43] MED LIST: ADJUSTABLE COMM1 MIS; CPMMACHINE; CYCL10TA PO; LEXA20TA PO; LORA-392 PO; MULT-65 PO; RISP1 PO; TAMO20TA6 PO; VITA100021 SL; WALKER WHEELS/F1 MIS
[2018-04-08 13:28] VITALS: BP 136/80; PULSE 86; RESP 16; TEMP 97; O2SAT 95
[2018-04-08] MEDS ORDERED: LIDOCAINE HCL 1% PF 30 ML VIAL ONE (14:33)
--- NOTE | 2018-04-08 16:21 | RADRPT ---
EXAM DATE: 04/08/2018 2:27 PM EDT AGE/SEX: 57 years / Female INDICATIONS: Left cruz's cyst. CLINICAL DATA: This is the patient's initial encounter. Patient reports that signs and symptoms have been present for 4 - 6 months and indicates a pain score of 4/10. MEDICAL/SURGICAL HISTORY: Hiatal hernia. Carcinoma, breast. Carcinoma, basal cell. BBB. Asth ma. Anxiety. Panic attacks. Depression. section. Hysterectomy. Mastectomy, right. Cardi ac cath. Pyloric valve surgery. Right breast reconstruction. Orthoscopic surgery, left knee x2. Thyro id surgery. Blood transfusions. COMPARISON: No prior [facility] exams available for comparison. No external comparison. FLUID: Total volume of 2cc cloudy, red Post procedure scanning reveals no hematoma or other complication. . . TECHNIQUE: Ultrasound guidance for needle aspiration. Aspiration. The risks, benefits and alternatives to the procedure were explained and verbal and written consent w as obtained. The site was prepped in sterile fashion. Full sterile technique was used, including ca p, mask, sterile gloves and gown and a large sterile sheet. Hand hygiene and 2% chlorhexidine and/or betadine/alcohol prep was utilized per protocol for cutaneous antisepsis. The skin and subcutaneous tissues were infiltrated with local anesthetic solution. Sterile gel and sterile probe cover were u tilized for ultrasound guidance. With the patient on the ultrasound table, ultrasound imaging was used to select the most appropriate approach for aspiration. A dermatotomy was made with an 11 blade scalpel. A catheter was introduced into the cavity and fluid was collected. FINDINGS: 22-gauge needle was placed within the medial knee however no significant fluid aspirated. The fluid m ay have been too thick for aspiration. Only 2 cc of serosanguineous fluid aspirated. CONCLUSION: Unsuccessful aspiration of fluid in the knee. Electronically signed by: Harrison Edouard MD 04/08/2018 4:20 PM EDT
== END 2018-04-08 16:05 | disposition home or self-care (01) ==
LOC: HRAD 12:43 → HRIP 12:50 → HRAD 16:05
PROVIDERS: ATTEND Surgery
DX: M71.22 Synovial cyst of popliteal space [Baker], left knee (principal); J45.909 Unspecified asthma, uncomplicated; K44.9 Diaphragmatic hernia without obstruction or gangrene; F41.9 Anxiety disorder, unspecified; F32.9 Major depressive disorder, single episode, unspecified; Z85.3 Personal history of malignant neoplasm of breast
CPT/HCPCS: 10160; 76942